=== PATIENT | female | born 1995 | race Caucasian/White ===

== ENCOUNTER 2019-12-12 09:07 | Emergency (ER) | payer OTHER, SELFPAY ==
[2019-12-12 09:15] VITALS: BP 129/82; PULSE 79; RESP 16; TEMP 36.3; O2SAT 100
--- NOTE | 2019-12-12 09:16 | ED.ABDPAIN ---
HPI - Abdominal Pain General Chief Complaint: Abdominal Pain Stated Complaint: DIARRHEA/ABD PAIN/NAUSEA Time Seen by Provider: 12/12/19 09:27 Source: patient and family Mode of arrival: ambulatory Limitations: no limitations History of Present Illness HPI narrative: 24-year-old female presents for evaluation of illness. She reports she was in [place] for 10 days and came back on the . On the plane ride home on December 02, she developed nausea, vomiting, diarrhea, 3 times. She had a temp of 99.0. Since then, she has had continued nausea, decreased appetite, intermittent vomiting. Today she reports increased fatigue, headache, constant upper abdominal cramping. She denies any abnormal bleeding in vomit or stool, rash, abnormal swelling, shortness of breath, cough, runny nose, congestion, sore throat. She reports no insect bites. She denies eating any raw food. She drank bottled water except for using [facility] bathroom and [facility] to brush her teeth and saw sign that said do not drink water. She became symptomatic within hours of that. She did not get recommended vaccinations of typhoid, malaria, Chinese encephalitis. Friend was sick with similar symptoms on first day of vacation that lasted 24 hours. Related Data Date of Last Menstrual Period: 12/05/19 Patient : No Home Medications Medication Instructions Recorded Confirmed Multiple Vitamins 12/12/19 Allergies Allergy/AdvReac Type Severity Reaction Status Date / Time No Known Allergies Allergy Verified 12/12/19 09:22 Review of Systems Review of Systems: Narrative: CONSTITUTIONAL: Denies fever, chills, weight loss, or sweats. EYES: Denies visual changes, redness, or discharge. ENT: Denies rhinorrhea, congestion, sore throat, or otalgia. CARDIOVASCULAR: Denies chest pain, palpitations, or edema. RESPIRATORY: Denies cough or dyspnea. GASTROINTESTINAL: Reports upper abdominal pain, nausea, vomiting, diarrhea. GENITOURINARY: Denies dysuria, hematuria, urinary frequency, malordous urine SKIN: Denies rash or itching. MUSCULOSKELETAL: Denies joint pain, myalgia, swelling. reports low back pain NEUROLOGIC: Denies numbness or weakness. Reports headache, fatigue PSYCHIATRIC: Denies anxiety or depression. All systems reviewed & are unremarkable except as noted in HPI and below PMFSH Comments At the time of my signature, I agree with nursing past medical, surgical, social and family history. There is no relevant family history pertinent to the presenting complaint. Exam Narrative: Exam Narrative: GENERAL: No distress, well appearing, well nourished, alert and calm HEAD: Normocephalic, atraumatic. EYES: Pupils equal, round. Extraocular movements intact. Conjunctivae without redness or drainage. EARS: Tympanic membranes without erythema. TM landmarks intact with good light reflex. Ear canals without discharge. NOSE: Nares patent. Nasal turbinates noninflamed. No nasal discharge MOUTH: Mucous membranes moist. No lesions. No cyanosis. Dentition grossly normal. THROAT: Oropharynx without signs erythema, exudates or lesions. Tonsils not enlarged. NECK: Supple. No lymphadenopathy. RESPIRATORY: Airway patent. Chest clear to auscultation bilaterally. Breath sounds equal bilaterally. No retractions. CARDIOVASCULAR: Regular rate and rhythm. No murmurs, rubs, gallops, or clicks. Capillary refill <2 seconds. GASTROINTESTINAL: Soft, mildly tender to upper and mid abd, non-distended. Bowel sounds normoactive. No masses. No organomegaly. No CVA tenderness MUSCULOSKELETAL: Range of motion grossly normal in all four extremities. Strength grossly normal in all four extremities. No edema. No swelling SKIN: Color normal. Warm and dry. No rashes. NEURO: Alert. Motor intact in all extremities. Muscle tone normal. PSYCHIATRIC: Responds appropriately to providers. Course Course Emergency Course: Obtained initial UA, hCG, influenza swab Vital Signs Vital signs: Vital
[2019-12-12] MEDS: ONDANSETRON HCL ODT 4 MG TABLET 8 MG SUBLINGUAL (09:54)
== END 2019-12-12 10:20 | disposition home or self-care (01) ==
PROVIDERS: Emergency Provider Nurse Practitioner
DX: R11.2 Nausea with vomiting, unspecified (principal); R19.7 Diarrhea, unspecified; R10.10 Upper abdominal pain, unspecified
CPT/HCPCS: 81003; 81025; 87804; 99213; A9270; G0463

== ENCOUNTER 2020-07-15 10:37 | Emergency (ER) | payer OTHER, SELFPAY ==
[2020-07-15 10:46] VITALS: BP 137/75; PULSE 123; RESP 20; TEMP 38.2; O2SAT 100
--- NOTE | 2020-07-15 10:50 | ED.URI ---
HPI - URI/Sore Throat General Chief Complaint: Upper Respiratory Infection Stated Complaint: SORE THROAT Source: patient and RN notes reviewed Limitations: no limitations History of Present Illness HPI Narrative: The patient, a non-smoker/ rare drinker heme-onc nurse, presents with sore throat. Patient states she had COVID in summer about April and has been since well since. She now has a shorter 8-hour onset of sore throat, and measured fever 103. Symptoms are mild, worse swallowing. No cough, loss of taste/smell, travel history, CP, vomiting/diarrhea, rash, S OB. The patient agrees, in light of health emergency- in my medical judgement, only a personal chat was preferable to fully undress & examine the patient exhibiting potential COVID symptoms, in order to limit risk of infection. Related Data Allergies Allergy/AdvReac Type Severity Reaction Status Date / Time No Known Allergies Allergy Verified 12/12/19 09:22 Review of Systems Review of Systems: Narrative: General/Constitutional: No weight loss, REPORTS fever Eyes: N0: Redness,discharge Ears/Nose/Throat: No: Epistaxis,ear discharge Respiratory: Denies: Hemoptysis Gastrointestinal: No Vomiting, Bleeding-rectal Skin: No Lumps, eruption Neurologic: No Focal Weakness,Sz Hematologic: Denies: Petechiae/Purpura Psychiatric: No: Suicida ideationl All Other Systems: Reviewed and Negative PMFSH Comments At time of signature, agree with nursing past medical, surgical, social and family history. There is no relevant family history pertinent to the presenting complaint Exam Narrative: Exam Narrative: General Appearance: Well nourished, Conjunctiva clear Nose: Rhinorrhea, Mucousal erythema Mouth/Throat: MM moist, Uvula midline, Pharyngeal erythema Neck: Supple, adenopathy Respiratory: No respiratory distress, Breath sounds equal, Cardiovascular: No JVD Musculoskeletal: Non tender, Normal strength Skin: Warm, Dry Neurological: A&O x3, Normal affect Course Vital Signs Vital signs: Vital Signs Temperature 100.7 F H 07/15/20 10:46 Pulse Rate 123 H 07/15/20 10:46 Respiratory Rate 07/15/20 10:46 Blood Pressure 137/75 07/15/20 10:46 Pulse Oximetry 100 07/15/20 10:46 Temperature 100.7 F H 07/15/20 10:46 Pulse Rate 123 H 07/15/20 10:46 Respiratory Rate 07/15/20 10:46 Blood Pressure 137/75 07/15/20 10:46 Pulse Oximetry 100 07/15/20 10:46 MDM - URI/Sore Throat Lab Data Labs: Strep Screen Presumptive Negative *(Reference Range: Negative)* Discharge Plan Discharge Clinical Impression: Pharyngitis Qualifiers: Pharyngitis/tonsillitis etiology: unspecified etiology Qualified Code(s): J02.9 - Acute pharyngitis, unspecified Patient Disposition: Home, Self-Care Condition: Stable Instructions: Antibiotic Form, Pharyngitis (ED) Prescriptions: New azithromycin 250 mg tablet See Rx Instructions .ROUTE .COMPLEX Qty: 6 RF: 0 Lidocaine Viscous 2 % solution 5 ml MUCOUS MEM QID PRN (Reason: pain) Qty: 100 RF: 0 Follow-up/Referrals: PHYSICIAN NOT ON STAFF,NONSTAFF [Primary Care Provider] - Stand Alone Forms: Work/School Release IP Discharge Date/Time: 07/15/20 11:12
== END 2020-07-15 11:12 | disposition home or self-care (01) ==
PROVIDERS: Emergency Provider Emergency Medicine
DX: J02.9 Acute pharyngitis, unspecified (principal)
CPT/HCPCS: 87081; 87880; 99213; G0463